=== PATIENT | male | born 1995 | race Caucasian/White ===

== ENCOUNTER 2018-02-09 03:12 | Emergency (ER) | payer SELFPAY ==
[~2018-02-09] VITALS: Ht 177.8 cm; Wt 61.2 kg
[2018-02-09 03:36] VITALS: BP 121/56
== END 2018-02-09 04:28 | disposition home or self-care (01) ==
LOC: ER 03:12
DX: S33.5XXA Sprain of ligaments of lumbar spine, initial encounter (principal); Z88.0 Allergy status to penicillin; X50.0XXA Overexertion from strenuous movement or load, initial encounter; Y93.89 Activity, other specified; Y99.8 Other external cause status; Y92.89 Other specified places as the place of occurrence of the external cause
CPT/HCPCS: 72100

== ENCOUNTER 2024-02-18 16:22 | Emergency (ER) | payer OTHER, MEDICAID ==
[~2024-02-18] VITALS: Ht 177.8 cm; Wt 73.8 kg
[2024-02-18 16:51] VITALS: BP 129/71; PULSE 80; RESP 16; TEMP 98.2; O2SAT 99
[2024-02-18] MEDS ORDERED: IBUP1TAB5 PO (17:19)
[2024-02-18] MEDS ORDERED: NEOM-48 EX (17:19)
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
[2024-02-18] MEDS: TETANUS IMMUNE GLOBULIN 250 UNIT/ML SYRG IM ONE (17:21)
[2024-02-18] MEDS: TETANUS-DIPTH-ACEL PERTUSSIS 0.5ML SYR Tdap IM ONE (17:27)
== END 2024-02-18 17:33 | disposition home or self-care (01) ==
LOC: ER 16:22 → MERGE 16:22 → ER 17:33
DX: T25.311A Burn of third degree of right ankle, initial encounter (principal); T24.311A Burn of third degree of right thigh, initial encounter; Z88.0 Allergy status to penicillin; Z88.2 Allergy status to sulfonamides; T31.10 Burns involving 10-19% of body surface with 0% to 9% third degree burns; X08.8XXA Exposure to other specified smoke, fire and flames, initial encounter; Y93.89 Activity, other specified; Y92.89 Other specified places as the place of occurrence of the external cause; Y99.8 Other external cause status
CPT/HCPCS: 90471; 90715

== ENCOUNTER 2025-01-26 01:48 | Emergency (ER) | payer MEDICAID, OTHER ==
[~2025-01-26] VITALS: Ht 180.3 cm; Wt 83.9 kg
[~2025-01-26 01:48] MED LIST: IBUP1TAB5 PO; NEOM-48 EX
[2025-01-26 02:02] VITALS: BP 125/71; PULSE 112; RESP 100; TEMP 98.2; O2SAT 100
== END 2025-01-26 08:53 | disposition left against medical advice (07) ==
LOC: ER 01:48 → EDBD 01:48 → ER 08:52
DX: M79.641 Pain in right hand (principal); Z53.21 Procedure and treatment not carried out due to patient leaving prior to being seen by health care provider